=== PATIENT | male | born 1995 | race African-American/Black ===

== ENCOUNTER 2023-07-29 19:01 | Emergency (ER) | payer MEDICAID, SELFPAY ==
[2023-07-29 19:06] VITALS: BP 143/85; PULSE 75; RESP 20; TEMP 36.8; O2SAT 98; BMI 33.2
--- NOTE | 2023-07-29 20:35 | ED_ITS ---
HPI - General Adult General Chief complaint: Cough Stated complaint: flu like symptoms, body aches Time Seen by Provider: 07/29/23 19:03 Source: patient Mode of arrival: ambulatory Limitations: no limitations History of Present Illness HPI narrative: 28-year-old male presenting today with upper respiratory symptoms. Patient states he has had a cough now for 7 days. He has congestion, feels achy and fatigued. He complains of a mild headache. Denies any sick contacts. Has chills at home. No documented fevers. Related Data Home Medications Medication Instructions Recorded Confirmed No Known Home Medications 07/29/23 07/29/23 Allergies Allergy/AdvReac Type Severity Reaction Status Date / Time pollen extracts Allergy Mild Cough Verified 07/29/23 19:11 Review of Systems Status of ROS: Reports: 10 or more systems reviewed and unremarkable except as noted in History and below [facility] Social History Smoking Status: Unknown if ever smoked Exam Narrative: Exam Narrative: Well-nourished well-developed patient in no acute distress. Alert and oriented. Answers questions appropriately. Mood and affect are appropriate. Thoughts are goal oriented and rational. No tangential or magical thinking noted. Patient speaks in full sentences without needing to catch his breath. Does sound very congested. Coughs periodically. HEENT: Normocephalic atraumatic. Pupils are equally round reactive to light. Extraocular muscles are intact. Conjunctivae are moist without any icterus noted. Moist mucous membranes. Posterior pharynx is normal. Neck is soft without any lymphadenopathy or thyromegaly. No masses are appreciated. Cardiovascular: Heart is regular rate and rhythm S1 and S2 are present without any murmurs. Lungs: Clear to auscultation bilaterally no wheezes rhonchi or rales are appreciated. Patient takes deep breaths without any discomfort. Abdomen: Soft and nontender nondistended with normal bowel sounds. Skin: Well perfused without any obvious rashes. Const: Vital Signs, click to edit/add: Vital Signs - 24 hr 07/29/23 19:06 Temperature 98.2 F Pulse Rate [Pulse Oximeter] 75 Respiratory Rate 20 Blood Pressure [Ri ght Upper Arm] 143/85 H Pulse Oximetry 98 Oxygen Delivery Me thod Room Air Course Course ED Course: Triple swab is negative. CBC was unremarkable. Chest x-ray, read by me, does not show any evidence of pneumonia. Vital Signs Vital signs: Initial Vital Signs Temperature 98.2 F 07/29/23 19:06 Temperature Source Oral 07/29/23 19:06 Pulse Rate 75 07/29/23 19:06 Respiratory Rate 20 07/29/23 19:06 Blood Pressure 143/85 H 07/29/23 19:06 Blood Pressure Mean 104 07/29/23 19:06 Blood Pressure Position Sitting 07/29/23 19:06 Pulse Oximetry 98 07/29/23 19:06 Oxygen Delivery Method Room Air 07/29/23 19:06 Vital Signs Temperature 98.2 F 07/29/23 19:06 Pulse Rate 75 07/29/23 19:06 Respiratory Rate 20 07/29/23 19:06 Blood Pressure 143/85 H 07/29/23 19:06 Pulse Oximetry 98 07/29/23 19:06 Oxygen Delivery Method Room Air 07/29/23 19:06 Temperature 98.2 F 07/29/23 19:06 Pulse Rate 75 07/29/23 19:06 Respiratory Rate 20 07/29/23 19:06 Blood Pressure 143/85 H 07/29/23 19:06 Pulse Oximetry 98 07/29/23 19:06 Oxygen Delivery Method Room Air 07/29/23 19:06 Medical Decision Making MDM Narrative Medical decision making narrative: 28-year-old male with URI symptoms, likely viral in nature. We discussed symptomatic treatment and follow-up as needed. Lab Data Lab results reviewed: Yes I reviewed the patient's lab results Labs: Lab Results 07/29/23 07/29/23 Range/Units 19:13 21:38 WBC 5.80 (4.50-11.00) K/uL RBC 5.11 (4.30-5.90) m/uL Hgb 14.6 (13.5-17.5) gm/dL Hct 45.1 (37.0-53.0) % MCV 88 (80-100) fL MCH 29 (26-34) pg MCHC 32 (32-36) gm/dL RDW Coeff of Elena 12.9 (11.5-15.5) % Plt Count 274 (140-440) K/uL Neut % (Auto) 40.8 L (42.0-72.0) % Lymph % (Auto) 47.8 H (20-44) % Hendricks % (Auto) 10.2 (0.0-11.0) % Eos % (Auto) 0.5 (0.0-7.0) % Baso % (Auto) 0.5 (0.0-3.0) % Neut # (Auto) 2.40 (1.7-7.0) K/uL Lymph # (Auto) 2.80 (0.90-2.90) K/uL Hendricks # (Auto) 0.60 (0.00-0.90) K/UL Eos # (Auto) 0.03 (0.00-0.50) K/uL Baso # (Auto) 0.03 (0.00-0.30) K/uL Abs Immat Gran (auto) 0.01 (0.00-0.30) K/uL Imm/Tot Granulo (auto) 0.2 % SARS-CoV-2 (PCR) Negative SARS-CoV-2 (Negative) Influenza Type A (PCR) Negative PCR FLU A (Negative) Influenza Type B (PCR) Negative PCR FLU B (Negative) RSV (PCR) Negative PCR RSV (Negative) Discharge Plan Discharge Clinical Impression: Acute viral syndrome Patient Disposition: Home, Self-Care Condition: Stable Additional Instructions: With have a viral infection that is her similar to influenza. There is no treatment for this aside from rest, increasing her daily fluid amount. You can take ibuprofen or Tylenol as needed for discomfort or fevers. Follow-up with your doctor as needed. Prescriptions: No Action No Known Home Medications Follow Up/Referrals: Reji Munoz LAT, ATC, CSCS [Primary Care Provider] - Stand Alone Forms: [facility] Info Instructions
[2023-07-29 21:06] LABS: PCR FLU A Negative PCR FLU A (Negative); PCR FLU B Negative PCR FLU B (Negative); PCR RSV Negative PCR RSV (Negative); SARS PCR* Negative SARS-CoV-2 (Negative)
--- NOTE | 2023-07-29 21:10 | CRLHL7_ITS ---
For Patients: As a result of the Cures Act, medical imaging exams and procedure reports are released immediately into your electronic medical record. You may view this report before your referring provider. If you have questions, please contact your health care provider. INDICATION: Shortness of breath TECHNIQUE: Chest radiograph 2 views COMPARISON: None FINDINGS: Mediastinum: The mediastinum is normal in appearance. The heart silhouette is normal in size and morphology. Lung: Both lungs are unremarkable in appearance. No sign of pleural effusion seen. No pneumothorax is identified. Bone and Soft tissue: Unremarkable for age. IMPRESSION: 1. No acute cardiopulmonary disease is seen. Dictated by: Rio Pearce MD @ 07/29/2023 22:07:12 (Electronically Signed)
[2023-07-29 21:58] LABS: Basophils Absolute Auto 0.03 K/uL (0.00-0.30); Basophils Percent Auto 0.5 % (0.0-3.0); Eosinophils Absolute Auto 0.03 K/uL (0.00-0.50); Eosinophils Percent Auto 0.5 % (0.0-7.0); Hematocrit 45.1 % (37.0-53.0); Hemoglobin* 14.6 gm/dL (13.5-17.5); Immature Granulocytes Abs Auto 0.01 K/uL (0.00-0.30); Immature Granulocytes Pct Auto 0.2 %; Lymphocytes Percent Auto 47.8 % (20-44); Mean Corpuscular HGB Conc 32 gm/dL (32-36); Mean Corpuscular Hemoglobin 29 pg (26-34); Mean Corpuscular Volume 88 fL (80-100); Monocytes Percent Auto 10.2 % (0.0-11.0); Neutrophils Percent Auto 40.8 % (42.0-72.0); Platelet Count* 274 K/uL (140-440); RDW Coefficient of Variation % 12.9 % (11.5-15.5); Red Blood Count 5.11 m/uL (4.30-5.90)
[2023-07-29 22:02] LABS: Slide Review Reflex No
== END 2023-07-29 22:44 | disposition home or self-care (01) ==
PROVIDERS: Family Medicine; Emergency Provider Family Medicine
DX: B34.9 Viral infection, unspecified (principal)
CPT/HCPCS: 36415; 71046; 85025; 87631; 99283; 99284

== ENCOUNTER 2024-10-26 08:35 | Emergency (ER) | payer OTHER, SELFPAY ==
[2024-10-26 08:41] VITALS: BP 146/88; PULSE 59; RESP 20; TEMP 36.4; O2SAT 99; BMI 41.9
--- NOTE | 2024-10-26 09:55 | ED_ITS ---
HPI - General Adult General Date Seen: 10/26/24 Chief complaint: Back Injury/Pain Stated complaint: back pain Time Seen by Provider: 10/26/24 09:49 History of Present Illness HPI narrative: 29-year-old male presenting to the emergency department this morning with concern for back pain. Started having pain in his back Saturday evening after work. Pain is in left side of his low back. It has worsened today and he is not able to go to work. He has been taking ibuprofen and acetaminophen at home. He has also been using [id number] ?icy hot? topical cream. He says that the back pain was manageable over the weekend but this morning was quite a bit worse. He tried to get up and get ready for work and get his son off school. He was having too much back pain and could not go to work. He called in sick to work and his employer asked him to come get checked out. His pain is located primarily in the left low back in the left lumbar paraspinous muscles and radiating down into the left buttock. It does not radiate down his leg any further. No associated numbness or weakness in the leg. He had pain when he tried to sit on the toilet to pass a bowel movement and urinate this morning but did not have any dysfunction of bladder or bowel. He has not had any fevers. 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 He has had occasional trouble with his back in the past but has never needed surgery. He has never had pain as severe as today. He has no other history of diabetes, immunosuppression, cancer. He is not anticoagulated. Related Data Previous Rx's ?Medication ?Instructions ?Recorded ondansetron 8 mg disintegrating 8 mg PO Q8H PRN nausea and 10/09/23 tablet vomiting #10 tabs Allergies Allergy/AdvReac Type Severity Reaction Status Date / Time pollen extracts Allergy Mild Cough Verified 10/09/23 11:51 [facility] Social History Smoking Status: Unknown if ever smoked How often do you have a drink containing alcohol: 2-3 times a week How many standard drinks containing alcohol do you have on a typical day: 3 or 4 AUDIT-C Alcohol total score: 4 Non-prescribed substance use: marijuana (any form) Exam Narrative: Exam Narrative: Constitutional: Appears well-developed and well-nourished. Alert. Conversant but uncomfortable. Non toxic. HENT: Head: Atraumatic. Nose: Nose normal. Mouth/Throat: Oral mucosa is clear and moist. no trismus. Eyes: Conjunctivae normal. EOM normal. Pupils equal, round, and reactive to light. No scleral icterus. Neck: Normal range of motion. Neck supple. No tracheal deviation present. Cardiovascular: Normal rate, regular rhythm. No gallop. No friction rub. No murmur heard. Symmetric radial artery pulses Pulmonary/Chest: Effort normal. No stridor. No respiratory distress. No wheezes. No rales. No rhonchi . No tenderness. Abdominal: Soft. No distension. No mass. No tenderness. No rebound. No guarding. Musculoskeletal: Groans in pain when he rolls over for back exam. He has no midline tenderness or step-off of the thoracic or lumbar spine. Pelvis stable. SI joints are nontender. He has diffuse mild tenderness on the left lumbar paraspinous muscles in buttock. No rash, bruising, redness. RUE: Normal range of motion. No tenderness. No deformity LUE: Normal range of motion. No tenderness. No deformity RLE: Normal range of motion. No edema. No tenderness. No deformity LLE: Normal range of motion. No edema. No tenderness. No deformity Neurological: Alert and oriented to person, place, and time. Normal strength. CN II-VII intact. No sensory deficit. GCS eye subscore is 4. GCS verbal subscore is 5. GCS motor subscore is 6. Normal coordination Sensory: Normal light touch sensation bilaterally on the anteromedial thigh (L3), medial malleolus (L4), dorsal first web space (L5), lateral malleolus (S1). Strength: 5/5 strength hip flexors (L3) on the rig ht and left 5/5 strength in the quadriceps (L4) on t he right and left 5/5 strength in the tibialis anterior 5/5 strength in the EHL (L5) on the righ t and left 5/5 strength in the gastrocnemius (S1) o n the right and left 5/5 strength in the hamstring on the rig ht and left Negative straight leg raise bilaterally. Skin: Skin is warm and dry. No rash noted. No pallor. Normal capillary refill. Psychiatric: Normal mood. Normal affect. Const: Vital Signs, click to edit/add: Vital Signs - 24 hr 10/26/24 08:41 Temperature 97.5 F L Pulse Rate [Pulse Oximeter] 59 L Respiratory Rate 20 Blood Pressure [Ri ght Upper Arm] 146/88 H Pulse Oximetry 99 Oxygen Delivery Me thod Room Air Course Vital Signs Vital signs: Initial Vital Signs Temperature 97.5 F L 10/26/24 08:41 Temperature Source Temporal Artery Scan 10/26/24 08:41 Pulse Rate 59 L 10/26/24 08:41 Respiratory Rate 20 10/26/24 08:41 Blood Pressure 146/88 H 10/26/24 08:41 Blood Pressure Mean 107 H 10/26/24 08:41 Pulse Oximetry 99 10/26/24 08:41 Oxygen Delivery Method Room Air 10/26/24 08:41 Vital Signs Temperature 97.5 F L 10/26/24 08:41 Pulse Rate 59 L 10/26/24 08:41 Respiratory Rate 20 10/26/24 08:41 Blood Pressure 146/88 H 10/26/24 08:41 Pulse Oximetry 99 10/26/24 08:41 Oxygen Delivery Method Room Air 10/26/24 08:41 Temperature 97.5 F L 10/26/24 08:41 Pulse Rate 59 L 10/26/24 08:41 Respiratory Rate 20 10/26/24 08:41 Blood Pressure 146/88 H 10/26/24 08:41 Pulse Oximetry 99 10/26/24 08:41 Oxygen Delivery Method Room Air 10/26/24 08:41 Medical Decision Making MDM Narrative Medical decision making narrative: This patient presented with back pain. Broad differential considered. The patient did not sustain any trauma, therefore x-rays are not necessary due to the low likelihood of fracture or subluxation. No red flag symptoms to suggest CT and/or MRI is indicated at this point. The patient has not had a fever, saddle/perineal anesthesia, bilateral foot numbness, or bowel or bladder dysfunction. There is no clinical evidence of cauda equina syndrome, discitis, spinal/epidural space hematoma or epidural abscess. The neurological exam is normal and the patient's symptoms seem consistent with a musculoskeletal issues and significant muscle spasm. Discussed options for receiving meds here in the ER but he wants to drive himself home. The patient will be discharged with pain medications to use as directed. [facility] prescriptions for Percocet 5/300 25 1-2 tablets q.4-6 hours p.r.n.-20. Also [facility] prescriptions for Flexeril 10 mg p.r.n. t.i.d.. Ice or heat to the back and stretching exercises. No heavy lifting, bending or twisting. Return if increasing pain, numbness, weakness, or bowel or bladder dysfunction. The patient was advised to schedule follow-up with their primary doctor within 7 days to re-assess symptoms. Return precautions reviewed and questions answered. Discharge Plan Discharge Clinical Impression: Low back pain Patient Disposition: Home, Self-Care Condition: Stable Instructions: Acute Low Back Pain (ED) Additional Instructions: As we discussed, often times back pain can take several days or even a couple of weeks to heal. For now, continue your already doing. Use Tylenol or ibuprofen (ibuprofen 800 mg 3 times daily as needed) and topical medications such as icy Hot for your back. Use the prescription muscle relaxers (Flexeril) or prescription pain killer (Percocet) if needed for pain that is not controlled by the other medications. Be careful with Flexeril and Percocet because it can cause dizziness, drowsiness, constipation, and can be addictive. Do not drive a car or operate machinery for 6 hours after taking medicines that cause sedation. If you have worsening pain, numbness or weakness down your leg, dysfunction of your bladder or bowel habits, fever, or any worsening symptoms please come back to the ER right away. Please call the [facility] [place], [address] schedule an ER follow-up appointment to recheck for your back pain we in the next 7-10 days. If your back pain is not improving by then, you may need physical therapy and/or an MRI. Prescriptions: No Action ondansetron 8 mg tablet,disintegrating 8 mg PO Q8H PRN (Reason: nausea and vomiting) Qty: 10 0RF Follow Up/Referrals: Reji Munoz, LAT, ATC, CSCS [Primary Care Provider] - Stand Alone Forms: Work/School Release, [facility] Info Instructions
== END 2024-10-26 11:04 | disposition home or self-care (01) ==
LOC: ED 10:33
PROVIDERS: Emergency Provider Emergency Medicine
DX: M54.50 Low back pain, unspecified (principal)
CPT/HCPCS: 99282; 99283